=== PATIENT | male | born 1965 | race Native Hawaiian/Other Pacific Islander ===

== ENCOUNTER 2023-07-25 18:47 | Emergency (ER) | payer OTHER ==
[~2023-07-25] VITALS: Ht 188 cm; Wt 125.2 kg
[2023-07-25 18:47] VITALS: BP 144/83; TEMP 98.1
[2023-07-25 19:25] LABS: PLATELET COUNT 141 K/uL (142-355)
[2023-07-25 19:28] LABS: POTASSIUM 4.4 mmol/L (3.6-5.2)
[2023-07-26] MEDS ORDERED: VAZALORE81 MG PO (09:18)
[2023-07-26] MEDS ORDERED: LIPITOR80 MG PO (09:19)
[2023-07-26] MEDS ORDERED: CLOP75TA2 PO (09:20)
[2023-07-26] MEDS ORDERED: HYDR25CA25 PO (09:21)
[2023-07-26] MEDS ORDERED: JARDIANCE25 MG PO (09:22)
[2023-07-26] MEDS ORDERED: COZAAR100 MG PO (09:23)
[2023-07-26] MEDS ORDERED: DAILY MULTI PO (09:24)
[2023-07-26] MEDS ORDERED: POTASSIUM CHLO20 ME1 PO (09:25)
[2023-07-26] MEDS ORDERED: TRAZ50TA36 PO (09:27)
[2023-07-26] MEDS ORDERED: NATURAL ZINC50 MG PO (09:28)
[2023-07-26] MEDS ORDERED: VICTOZA18 MG/3 ML SC (09:31)
[2023-07-26] MEDS ORDERED: FAMO20TA4 PO (09:34)
[2023-07-26] MEDS ORDERED: ESCI10TA PO (09:34)
[2023-07-26] MEDS ORDERED: FURO40TA93 PO (09:35)
[2023-07-26] MEDS ORDERED: GLIM4TAB PO (09:36)
[2023-07-26] MEDS ORDERED: ASCO500T18 PO (09:39)
[2023-08-01] MEDS ORDERED: ASCO500T18 PO (11:06)
[2023-08-01] MEDS ORDERED: ENTERIC COATED325 MG PO (11:06)
[2023-08-01] MEDS ORDERED: Atorvastatin Calcium PO (11:07)
[2023-08-01] MEDS ORDERED: CLOP75TA2 PO (11:07)
[2023-08-01] MEDS ORDERED: CHOL100034 PO (11:07)
[2023-08-01] MEDS ORDERED: ESCI10TA PO (11:08)
[2023-08-01] MEDS ORDERED: JARDIANCE10 MG PO (11:08)
[2023-08-01] MEDS ORDERED: FURO40TA93 PO (11:09)
[2023-08-01] MEDS ORDERED: GABA300C2 PO (11:09)
[2023-08-01] MEDS ORDERED: FAMOTIDINE20 MG PO (11:09)
[2023-08-01] MEDS ORDERED: GLIM2TAB PO (11:09)
[2023-08-01] MEDS ORDERED: INSU100P SC (11:10)
[2023-08-01] MEDS ORDERED: POTA20TA4 PO (11:11)
[2023-08-01] MEDS ORDERED: LOSA50TA PO (11:11)
[2023-08-01] MEDS ORDERED: BLOOMIS59 SC (11:11)
[2023-08-01] MEDS ORDERED: ZINC220C4 PO (11:12)
[2023-08-01] MEDS ORDERED: TRAZ50TA36 PO (11:12)
== END 2023-07-25 22:40 | disposition other institution (70) ==
LOC: ED 18:47
PROVIDERS: Family Medicine
DX: Z04.6 Encounter for general psychiatric examination, requested by authority (principal); F29 Unspecified psychosis not due to a substance or known physiological condition; Z86.718 Personal history of other venous thrombosis and embolism; E11.9 Type 2 diabetes mellitus without complications; K21.9 Gastro-esophageal reflux disease without esophagitis; I10 Essential (primary) hypertension; R73.9 Hyperglycemia, unspecified; F17.210 Nicotine dependence, cigarettes, uncomplicated; Z20.822 Contact with and (suspected) exposure to COVID-19
CPT/HCPCS: 36415; 80053; 81002; 85027; 87635; 93005; 99283; U0003